=== PATIENT | male | born 1995 | race Two or more races ===

== ENCOUNTER 2018-11-07 17:20 | Emergency (ER) | payer OTHER ==
[~2018-11-07] VITALS: Ht 175.3 cm; Wt 56.2 kg
[2018-11-07 17:24] VITALS: BP 107/73
--- NOTE | 2018-11-07 17:58 | NUR ---
RASH ON ARMS, TORSO AND GENTALS
--- NOTE | 2018-11-07 18:10 | NUR ---
LAB AT BEDSIDE
== END 2018-11-07 18:29 | disposition home or self-care (01) ==
LOC: ED 18:00
DX: A51.0 Primary genital syphilis (principal); A60.01 Herpesviral infection of penis; B34.9 Viral infection, unspecified
CPT/HCPCS: 36415; 86592; 86780; 99283

== ENCOUNTER 2018-11-09 18:00 | Emergency (ER) | payer SELFPAY ==
[~2018-11-09] VITALS: Ht 180.3 cm; Wt 56.6 kg
[2018-11-09 18:09] VITALS: BP 107/63
[2018-11-09 18:42] LABS: BASOPHILS # (AUTO) 0.02 x10^3/uL (0-0.1); BASOPHILS % (AUTO) 0 % (0-1); EOSINOPHILS # (AUTO) 0.17 x10^3/uL (0-0.4); EOSINOPHILS % (AUTO) 3 % (1-7); LYMPHOCYTES # (AUTO) 1.66 x10^3/uL (1-3.4); LYMPHOCYTES % (AUTO) 29 % (22-44); MD NO; MEAN CORPUSCULAR HEMOGLOBIN 31.1 pg (27.5-34.5); MEAN CORPUSCULAR HGB CONC 33.5 g/dL (33.2-36.2); MEAN CORPUSCULAR VOLUME 92.7 fL (81-97); MEAN PLATELET VOLUME 8.2 fL (7.4-10.4); MONOCYTES # (AUTO) 0.59 x10^3/uL (0.2-0.8); MONOCYTES % (AUTO) 10 % (2-9); NEUTROPHILS # (AUTO) 3.31 x10^3/uL (1.8-6.8); NEUTROPHILS % (AUTO) 58 % (42-75); PLATELET COUNT 262 x10^3/uL (130-400); RED BLOOD COUNT 5.02 x10^6/uL (4.38-5.82)
[2018-11-09 18:52] LABS: ALANINE AMINOTRANSFERASE 19 U/L (12-78); ALBUMIN 3.9 g/dL (3.4-5.0); ANION GAP 5 mmol/L (5-15); CALCIUM 8.9 mg/dL (8.5-10.1); CHLORIDE 109 mmol/L (98-107); CREATININE 0.88 mg/dL (0.7-1.3)
--- NOTE | 2018-11-09 18:53 | NUR ---
DIETETIC TECHNICIAN REGISTERED: PT TO ROOM FROM DEV LOBO
[2018-11-09 18:55] LABS: ALKALINE PHOSPHATASE 98 U/L (45-117); BILIRUBIN,TOTAL 0.8 mg/dL (0.2-1.0); TOTAL PROTEIN 8.2 g/dL (6.4-8.2)
--- NOTE | 2018-11-09 19:19 | NUR ---
Dr. Chan at bedside with RN, Jennyfer, (translating) to evaluate pt.
--- NOTE | 2018-11-09 19:29 | NUR ---
Pt states that he had an allergic reaction to an unknown antibiotic in [place], he does not have any way of figuring out which medication it was.
[2018-11-09] MEDS ORDERED: BICILLIN-LA 2,400,000 UNITS/4 ML IM ONE ×2 (19:30→20:30)
--- NOTE | 2018-11-09 19:30 | NUR ---
No urine sample needed, per Dr. Chan.
--- NOTE | 2018-11-09 19:52 | NUR ---
RN in to assess pt regarding his decision for penicillin shot. Pt states that he spoke to a family member in [place] and confirmed that his allergic reaction was to metamizole, not an antibiotic. Dr. Chan to be notified.
--- NOTE | 2018-11-09 20:11 | NUR ---
Pt medicated per AUG, after MD made aware of pt's allergy.
== END 2018-11-09 20:54 | disposition home or self-care (01) ==
LOC: ED 20:42
DX: A51.0 Primary genital syphilis (principal)
CPT/HCPCS: 36415; 80053; 83690; 85025; 96372; 99283; J0561

== ENCOUNTER 2019-04-24 22:11 | Emergency (ER) | payer SELFPAY ==
[~2019-04-24] VITALS: Ht 172.7 cm; Wt 54.6 kg
[2019-04-24 23:40] LABS: BASOPHILS # (AUTO) 0.01 x10^3/uL (0-0.1); BASOPHILS % (AUTO) 0 % (0-1); EOSINOPHILS # (AUTO) 0.07 x10^3/uL (0-0.4); EOSINOPHILS % (AUTO) 1 % (1-7); LYMPHOCYTES # (AUTO) 2.03 x10^3/uL (1-3.4); LYMPHOCYTES % (AUTO) 26 % (22-44); MD NO; MEAN CORPUSCULAR HEMOGLOBIN 31.6 pg (27.5-34.5); MEAN CORPUSCULAR HGB CONC 33.3 g/dL (33.2-36.2); MEAN CORPUSCULAR VOLUME 94.7 fL (81-97); MEAN PLATELET VOLUME 7.9 fL (7.4-10.4); MONOCYTES # (AUTO) 0.69 x10^3/uL (0.2-0.8); MONOCYTES % (AUTO) 9 % (2-9); NEUTROPHILS # (AUTO) 5.17 x10^3/uL (1.8-6.8); NEUTROPHILS % (AUTO) 65 % (42-75); PLATELET COUNT 248 x10^3/uL (130-400); RED BLOOD COUNT 4.72 x10^6/uL (4.38-5.82); RED CELL DISTRIBUTION WIDTH 13.6 % (9.4-14.8)
[2019-04-24 23:46] LABS: ALANINE AMINOTRANSFERASE 20 U/L (12-78); ALBUMIN 4.5 g/dL (3.4-5.0); ANION GAP 7 mmol/L (5-15); CALCIUM 9.2 mg/dL (8.5-10.1); CHLORIDE 107 mmol/L (98-107); CREATININE 0.99 mg/dL (0.7-1.3)
[2019-04-24 23:48] LABS: ALKALINE PHOSPHATASE 96 U/L (45-117); BILIRUBIN,TOTAL 1.1 mg/dL (0.2-1.0); TOTAL PROTEIN 8.3 g/dL (6.4-8.2)
[2019-04-25 01:39] VITALS: BP 112/60
== END 2019-04-25 01:41 | disposition home or self-care (01) ==
LOC: ED 23:59
DX: K29.00 Acute gastritis without bleeding (principal); R10.11 Right upper quadrant pain
CPT/HCPCS: 36415; 76700; 80053; 83690; 85025; 99284

== ENCOUNTER 2019-05-01 22:05 | Emergency (ER) | payer SELFPAY ==
[~2019-05-01] VITALS: Ht 172.7 cm; Wt 58.2 kg
[2019-05-01] MEDS ORDERED: ONDANSETRON 2MG/ML, 2ML ONE (23:48)
[2019-05-01] MEDS ORDERED: MORPHINE SULFATE 4 MG/ML, 1ML ONE (23:48)
[2019-05-01 23:54] LABS: BASOPHILS # (AUTO) 0.04 x10^3/uL (0-0.1); BASOPHILS % (AUTO) 1 % (0-1); EOSINOPHILS # (AUTO) 0.23 x10^3/uL (0-0.4); EOSINOPHILS % (AUTO) 4 % (1-7); LYMPHOCYTES # (AUTO) 2.17 x10^3/uL (1-3.4); LYMPHOCYTES % (AUTO) 35 % (22-44); MD NO; MEAN CORPUSCULAR HEMOGLOBIN 31.5 pg (27.5-34.5); MEAN CORPUSCULAR HGB CONC 33.2 g/dL (33.2-36.2); MEAN CORPUSCULAR VOLUME 94.7 fL (81-97); MEAN PLATELET VOLUME 7.9 fL (7.4-10.4); MONOCYTES % (AUTO) 8 % (2-9); NEUTROPHILS # (AUTO) 3.24 x10^3/uL (1.8-6.8); NEUTROPHILS % (AUTO) 53 % (42-75); PLATELET COUNT 241 x10^3/uL (130-400); RED BLOOD COUNT 4.46 x10^6/uL (4.38-5.82); RED CELL DISTRIBUTION WIDTH 13.4 % (9.4-14.8)
--- NOTE | 2019-05-01 23:57 | NUR ---
LOG SORTING SUPERVISOR USED. PAIN FOR A COUPLE OF DAYS. BLOOD IN STOOL, MIKY BLOOD X3 DAYS. PAIN IN RLQ. 01/03.
[2019-05-02] MEDS ORDERED: SODIUM CHLORIDE FLUSH 10ML SYR IVF ONE
[2019-05-02] MEDS ORDERED: ONDANSETRON 2MG/ML, 2ML IVPush ONE
[2019-05-02] MEDS ORDERED: MORPHINE SULFATE 4 MG/ML, 1ML IVPush PRN
--- NOTE | 2019-05-02 00:01 | NUR ---
PT ALSO C/O PAIN STERNAL AREA THAT RADIATES TO SHOULDERS AND BACK. X4 DAYS. C/O NAUSEA BUT DENIES VOMITTING. PT HIV +
[2019-05-02 00:05] LABS: ALKALINE PHOSPHATASE 91 U/L (45-117); TOTAL PROTEIN 7.7 g/dL (6.4-8.2)
[2019-05-02 00:09] LABS: ALANINE AMINOTRANSFERASE 25 U/L (12-78); ALBUMIN 4.2 g/dL (3.4-5.0); ANION GAP 6 mmol/L (5-15); CALCIUM 8.6 mg/dL (8.5-10.1); CHLORIDE 111 mmol/L (98-107); CREATININE 0.92 mg/dL (0.7-1.3)
[2019-05-02 00:25] LABS: MICROSCOPIC AUTO
[2019-05-02 00:26] LABS: CULTURE INDICATED? NO
--- NOTE | 2019-05-02 00:30 | NUR ---
PT STATES HE IS SCARED OF MORPHINE AND DOES NOT WANT IT AT THIS TIME.
--- NOTE | 2019-05-02 01:20 | NUR ---
BREAK RN: PT RESTING ON GURNEY IN NAD. ALL VITALS STABLE. AWAITING US READ AT THIS TIME, WILL CONTINUE TO MONITOR.
[2019-05-02 01:33] VITALS: BP 127/78
== END 2019-05-02 02:31 | disposition home or self-care (01) ==
LOC: ED 05-02 01:55
DX: R07.89 Other chest pain (principal); R10.11 Right upper quadrant pain
CPT/HCPCS: 36415; 71045; 76700; 80053; 81001; 83690; 85025; 93005; 96374; 99284; J2405

== ENCOUNTER 2019-05-08 21:56 | Emergency (ER) | payer SELFPAY ==
[~2019-05-08] VITALS: Ht 167.6 cm; Wt 54.9 kg
--- NOTE | 2019-05-08 22:01 | NUR ---
FELIZX1
--- NOTE | 2019-05-08 22:13 | NUR ---
THE PT DOES NOT WANT TO BE CONNECTED TO THE MONITORING EQUIPMENT.
[2019-05-08] MEDS ORDERED: ONDANSETRON 2MG/ML, 2ML IVPush ONE (22:30)
[2019-05-08] MEDS ORDERED: SODIUM CHLORIDE FLUSH 10ML SYR IVF ONE (22:30)
[2019-05-08] MEDS ORDERED: HYDROmorphone 1 MG/ML, 1ML VIAL ONE (22:37)
[2019-05-08] MEDS ORDERED: ONDANSETRON 2MG/ML, 2ML ONE (22:37)
[2019-05-08 22:45] LABS: BASOPHILS # (AUTO) 0.06 x10^3/uL (0-0.1); BASOPHILS % (AUTO) 1 % (0-1); EOSINOPHILS # (AUTO) 0.14 x10^3/uL (0-0.4); EOSINOPHILS % (AUTO) 3 % (1-7); LYMPHOCYTES # (AUTO) 1.45 x10^3/uL (1-3.4); LYMPHOCYTES % (AUTO) 32 % (22-44); MD NO; MEAN CORPUSCULAR HEMOGLOBIN 31.4 pg (27.5-34.5); MEAN CORPUSCULAR HGB CONC 33.1 g/dL (33.2-36.2); MEAN CORPUSCULAR VOLUME 94.8 fL (81-97); MEAN PLATELET VOLUME 8.1 fL (7.4-10.4); MONOCYTES % (AUTO) 11 % (2-9); NEUTROPHILS % (AUTO) 53 % (42-75); PLATELET COUNT 226 x10^3/uL (130-400); RED BLOOD COUNT 4.68 x10^6/uL (4.38-5.82); RED CELL DISTRIBUTION WIDTH 13.4 % (9.4-14.8)
[2019-05-08] MEDS: HYDROmorphone 2 MG/ML, 1ML IVPush PRN (22:46)
--- NOTE | 2019-05-08 22:48 | NUR ---
ROUNDS COMPLETED. IV STARTED. MEDICATED FOR PAIN. READY FOR CT.
[2019-05-08 22:52] LABS: ALANINE AMINOTRANSFERASE 21 U/L (12-78); ALBUMIN 4.4 g/dL (3.4-5.0); ANION GAP 4 mmol/L (5-15); CALCIUM 8.8 mg/dL (8.5-10.1); CHLORIDE 108 mmol/L (98-107); CREATININE 0.95 mg/dL (0.7-1.3)
--- NOTE | 2019-05-08 22:53 | NUR ---
MEDICATED EFFECTIVELY. THE PT DENIES PAIN AT THIS TIME.
[2019-05-08 22:54] LABS: ALKALINE PHOSPHATASE 92 U/L (45-117); BILIRUBIN,TOTAL 1.6 mg/dL (0.2-1.0)
--- NOTE | 2019-05-08 23:31 | NUR ---
BACK FROM CT.
[2019-05-08] MEDS ORDERED: OMNIPAQUE 350 MG/ML, 100ML BOTTLE ONE (23:32)
--- NOTE | 2019-05-08 23:35 | NUR ---
WARM BLANKETS APPLIED.
[2019-05-09] MEDS ORDERED: HYDROmorphone 1 MG/ML, 1ML VIAL ONE (00:41)
[2019-05-09] MEDS: HYDROmorphone 2 MG/ML, 1ML IVPush PRN (00:42)
[2019-05-09 00:49] VITALS: BP 127/74
--- NOTE | 2019-05-09 00:50 | NUR ---
D/C INST REVIEWED W/ THE PT. THE PT VERB UNDERSTANDING. THE PT WAS MEDICATED W/ 2 OF 2 DILAUDID BEFORE D/C FOR C/O R ABD PAIN.
== END 2019-05-09 01:12 | disposition home or self-care (01) ==
LOC: ED 23:59
DX: A09 Infectious gastroenteritis and colitis, unspecified (principal); Z90.89 Acquired absence of other organs; Z21 Asymptomatic human immunodeficiency virus [HIV] infection status
CPT/HCPCS: 36415; 74177; 80053; 83690; 85025; 96374; 96375; 96376; 99284; J1170; J2405; Q9967

== ENCOUNTER 2019-05-10 21:38 | Emergency (ER) | payer SELFPAY ==
[~2019-05-10] VITALS: Ht 177.8 cm; Wt 53.7 kg
[2019-05-10] MEDS ORDERED: FAMOTIDINE 20 MG TABLET PO ONE (22:30)
[2019-05-10] MEDS ORDERED: DIPHENHYDRAMINE 25 MG CAPSULE PO ONE (22:30)
--- NOTE | 2019-05-10 23:18 | NUR ---
PT TO ROOM
[2019-05-10] MEDS ORDERED: FAMOTIDINE 20 MG TABLET ONE (23:20)
[2019-05-10] MEDS ORDERED: DIPHENHYDRAMINE 25 MG CAPSULE ONE (23:20)
[2019-05-11 01:32] LABS: BASOPHILS # (AUTO) 0.03 x10^3/uL (0-0.1); BASOPHILS % (AUTO) 0 % (0-1); EOSINOPHILS # (AUTO) 0.01 x10^3/uL (0-0.4); EOSINOPHILS % (AUTO) 0 % (1-7); LYMPHOCYTES # (AUTO) 1.69 x10^3/uL (1-3.4); LYMPHOCYTES % (AUTO) 20 % (22-44); MD NO; MEAN CORPUSCULAR HEMOGLOBIN 30.6 pg (27.5-34.5); MEAN CORPUSCULAR HGB CONC 32.8 g/dL (33.2-36.2); MEAN CORPUSCULAR VOLUME 93.4 fL (81-97); MONOCYTES # (AUTO) 0.63 x10^3/uL (0.2-0.8); MONOCYTES % (AUTO) 8 % (2-9); NEUTROPHILS # (AUTO) 6.01 x10^3/uL (1.8-6.8); NEUTROPHILS % (AUTO) 72 % (42-75); PLATELET COUNT 247 x10^3/uL (130-400); RED BLOOD COUNT 4.61 x10^6/uL (4.38-5.82); RED CELL DISTRIBUTION WIDTH 13.7 % (9.4-14.8)
[2019-05-11 01:42] LABS: ALANINE AMINOTRANSFERASE 24 U/L (12-78); ALBUMIN 4.4 g/dL (3.4-5.0); ANION GAP 5 mmol/L (5-15); CALCIUM 8.9 mg/dL (8.5-10.1); CHLORIDE 110 mmol/L (98-107); CREATININE 0.85 mg/dL (0.7-1.3)
[2019-05-11 01:44] LABS: ALKALINE PHOSPHATASE 74 U/L (45-117); BILIRUBIN,TOTAL 1.8 mg/dL (0.2-1.0); TOTAL PROTEIN 7.6 g/dL (6.4-8.2)
--- NOTE | 2019-05-11 02:00 | NUR ---
Break RN: ERP at bedside for re-evaluation.
[2019-05-11 02:18] VITALS: BP 112/76
== END 2019-05-11 02:20 | disposition home or self-care (01) ==
LOC: ED 05-11 00:17
DX: L50.9 Urticaria, unspecified (principal)
CPT/HCPCS: 36415; 80053; 85025; 99283; Q0163

== ENCOUNTER 2019-05-28 23:36 | Emergency (ER) | payer OTHER ==
[~2019-05-28] VITALS: Ht 175.3 cm; Wt 55.2 kg
[2019-05-28 23:40] VITALS: BP 129/72
--- NOTE | 2019-05-28 23:50 | NUR ---
PT C/O GROIN PAIN SINCE 4 PM. BURNING DURING URINATION
[2019-05-29] MEDS ORDERED: ACETAMINOPHEN 325 MG TABLET ONE (00:20)
[2019-05-29] MEDS ORDERED: ACETAMINOPHEN 325 MG TABLET PO ONE (00:30)
[2019-05-29 00:38] LABS: MICROSCOPIC NOT IND
[2019-05-29 00:45] LABS: CULTURE INDICATED? NO
--- NOTE | 2019-05-29 02:04 | NUR ---
Patient/Caregiver given discharge instructions and they have confirmed that they understand the instructions. Patient ambulatory with steady gait.
[2019-06-20] MEDS ORDERED: HIV MEDS (23:42)
== END 2019-05-29 02:10 | disposition home or self-care (01) ==
LOC: ED 05-29 01:20
DX: N50.812 Left testicular pain (principal)
CPT/HCPCS: 76870; 81003; 87491; 87591; 99284

== ENCOUNTER 2019-07-13 18:52 | Emergency (ER) | payer OTHER ==
[~2019-07-13] VITALS: Ht 177.8 cm; Wt 55.8 kg
[~2019-07-13 18:52] MED LIST: HIV MEDS
[2019-07-13 19:01] VITALS: BP 118/60
[2019-07-13] MEDS ORDERED: IBUPROFEN 200 MG TABLET PO ONE (19:30)
[2019-07-13] MEDS ORDERED: IBUPROFEN 200 MG TABLET ONE (19:42)
--- NOTE | 2019-07-13 20:25 | NUR ---
PT RETURNED FROM XRAY, AWAITING READ, NO NEEDS AT THIS TIME.
--- NOTE | 2019-07-13 21:15 | NUR ---
Patient/Caregiver given discharge instructions and they have confirmed that they understand the instructions. Patient ambulatory with steady gait.
== END 2019-07-13 21:26 | disposition home or self-care (01) ==
LOC: ED 21:15
DX: S16.1XXA Strain of muscle, fascia and tendon at neck level, initial encounter (principal); F17.200 Nicotine dependence, unspecified, uncomplicated; Z90.89 Acquired absence of other organs; X58.XXXA Exposure to other specified factors, initial encounter; Y93.89 Activity, other specified; Y92.89 Other specified places as the place of occurrence of the external cause; Y99.8 Other external cause status
CPT/HCPCS: 72050; 99283

== ENCOUNTER 2019-07-27 21:21 | Emergency (ER) | payer SELFPAY ==
[~2019-07-27] VITALS: Ht 177.8 cm; Wt 55.9 kg
--- NOTE | 2019-07-27 22:20 | NUR ---
Note rahul in ED - 07/27/19 at 2221 by PA [employer] ASSEMBLER DECK AND HULL USED [id number]: THIS IS A 24 YO MALE COMING IN FOR DIZZINESS AND "FEELING ILL" SINCE [id number]. PATIENT STATES "I TESTED POSITIVE FOR CHLAMYDIA TODAY AND THEY GAVE ME AZYTHROMYCIN. WHEN I GOT TO THE HOTEL THEY OF
--- NOTE | 2019-07-27 22:21 | NUR ---
[employer] SHELL ASSEMBLER USED [id number]: THIS IS A 24 YO MALE COMING IN FOR DIZZINESS AND "FEELING ILL" SINCE [phone]. PATIENT STATES "I TESTED POSITIVE FOR CHLAMYDIA TODAY AND THEY GAVE ME AZYTHROMYCIN. WHEN I GOT TO THE HOTEL THEY OFFERED ME [place], AND AFTER THAT I STARTED FEELING NOT WELL AND DIZZY LIKE I WAS GOING TO PASS OUT". PATIENT DENIES SOB, DENIES CP, DENIES LOC. MEDICAL HX CONSISTS OF HIV, AND CURRENTLY TAKES MEDICATIONS FOR IT. VSS, SPO2 AND BP MONITORING IN PLACE, NAD, CALL LIGHT IN REACH, DENIES NEEDS AT THIS TIME.
[2019-07-27 22:40] LABS: BASOPHILS # (AUTO) 0.04 x10^3/uL (0-0.1); BASOPHILS % (AUTO) 1 % (0-1); EOSINOPHILS # (AUTO) 0.09 x10^3/uL (0-0.4); EOSINOPHILS % (AUTO) 2 % (1-7); LYMPHOCYTES # (AUTO) 1.21 x10^3/uL (1-3.4); LYMPHOCYTES % (AUTO) 21 % (22-44); MD NO; MEAN CORPUSCULAR HEMOGLOBIN 30.8 pg (27.5-34.5); MEAN CORPUSCULAR HGB CONC 33.6 g/dL (33.2-36.2); MEAN CORPUSCULAR VOLUME 91.9 fL (81-97); MEAN PLATELET VOLUME 8.1 fL (7.4-10.4); MONOCYTES # (AUTO) 0.41 x10^3/uL (0.2-0.8); MONOCYTES % (AUTO) 7 % (2-9); NEUTROPHILS # (AUTO) 3.92 x10^3/uL (1.8-6.8); NEUTROPHILS % (AUTO) 69 % (42-75); PLATELET COUNT 206 x10^3/uL (130-400); RED BLOOD COUNT 4.66 x10^6/uL (4.38-5.82); RED CELL DISTRIBUTION WIDTH 13.3 % (9.4-14.8)
[2019-07-27 22:49] LABS: ALANINE AMINOTRANSFERASE 24 U/L (12-78); ALBUMIN 4.4 g/dL (3.4-5.0); ANION GAP 6 mmol/L (5-15); CALCIUM 9.1 mg/dL (8.5-10.1); CHLORIDE 109 mmol/L (98-107)
[2019-07-27 22:51] LABS: ALKALINE PHOSPHATASE 91 U/L (45-117); BILIRUBIN,TOTAL 1.8 mg/dL (0.2-1.0); TOTAL PROTEIN 7.8 g/dL (6.4-8.2)
[2019-07-27 22:57] VITALS: BP 109/63
--- NOTE | 2019-07-27 22:58 | NUR ---
PATIENT STATES HE IS FEELING A LITTLE BETTER AND LESS DIZZY. PATIENT UP FOR RECHECK. VSS, NAD, CALL LIGHT IN REACH
--- NOTE | 2019-07-27 23:34 | NUR ---
Patient/Caregiver given discharge instructions and they have confirmed that they understand the instructions. Patient ambulatory with steady gait.
--- NOTE | 2019-07-27 23:35 | NUR ---
PATIENT DID NOT WANT TAXI VOUCHER, PATIENT STATES "I'M STAYING AT [facility], I CAN WALK"
== END 2019-07-27 23:37 | disposition home or self-care (01) ==
LOC: ED 22:50
DX: R42 Dizziness and giddiness (principal); R53.1 Weakness; F17.200 Nicotine dependence, unspecified, uncomplicated; Z90.89 Acquired absence of other organs
CPT/HCPCS: 36415; 80053; 80307; 85025; 93005; 99284

== ENCOUNTER 2019-08-02 22:14 | Emergency (ER) | payer SELFPAY ==
[~2019-08-02] VITALS: Ht 177.8 cm; Wt 56.4 kg
--- NOTE | 2019-08-02 22:35 | NUR ---
PT C/O FEELING WEAK AND PERIUMBILICAL PAIN FOR TWO DAYS. DENIES N/V/D. PT CONNECTED TO MONITORING. CALL LIGHT IN REACH. AWAITING ORDERS AT THIS TIME.
[2019-08-02] MEDS ORDERED: LORazepam 0.5MG TABLET PO ONE (23:00)
[2019-08-02 23:03] LABS: BASOPHILS # (AUTO) 0.03 x10^3/uL (0-0.1); BASOPHILS % (AUTO) 1 % (0-1); EOSINOPHILS # (AUTO) 0.12 x10^3/uL (0-0.4); EOSINOPHILS % (AUTO) 2 % (1-7); LYMPHOCYTES # (AUTO) 1.82 x10^3/uL (1-3.4); LYMPHOCYTES % (AUTO) 35 % (22-44); MD NO; MEAN CORPUSCULAR HEMOGLOBIN 30.8 pg (27.5-34.5); MEAN CORPUSCULAR HGB CONC 33.7 g/dL (33.2-36.2); MEAN CORPUSCULAR VOLUME 91.3 fL (81-97); MONOCYTES # (AUTO) 0.69 x10^3/uL (0.2-0.8); MONOCYTES % (AUTO) 13 % (2-9); NEUTROPHILS # (AUTO) 2.57 x10^3/uL (1.8-6.8); NEUTROPHILS % (AUTO) 49 % (42-75); PLATELET COUNT 208 x10^3/uL (130-400); RED BLOOD COUNT 4.67 x10^6/uL (4.38-5.82); RED CELL DISTRIBUTION WIDTH 13.4 % (9.4-14.8)
[2019-08-02 23:12] LABS: ALANINE AMINOTRANSFERASE 24 U/L (12-78); ALBUMIN 4.3 g/dL (3.4-5.0); ANION GAP 6 mmol/L (5-15); CALCIUM 8.7 mg/dL (8.5-10.1); CHLORIDE 108 mmol/L (98-107); CREATININE 0.83 mg/dL (0.7-1.3)
[2019-08-02 23:15] LABS: SALICYLATE LEVEL < 1.7 mg/dL (2.8-20.0)
[2019-08-02 23:16] LABS: ALKALINE PHOSPHATASE 89 U/L (45-117); BILIRUBIN,TOTAL 1.4 mg/dL (0.2-1.0); TOTAL PROTEIN 7.7 g/dL (6.4-8.2)
--- NOTE | 2019-08-02 23:22 | NUR ---
PT PROVIDED URINE SAMPLE. UA COLLECTED AND TAKEN TO LAB.
[2019-08-02] MEDS ORDERED: LORazepam 0.5MG TABLET ONE (23:26)
--- NOTE | 2019-08-02 23:28 | NUR ---
MEDS ADMIN PER AUG. PT SITTING ON SIDE OF BED PLAYING ON PHONE.
--- NOTE | 2019-08-02 23:39 | NUR ---
CARLOS ALBERTO RN: TELEPSYCH PAGED
[2019-08-02 23:48] LABS: AMPHETAMINE SCREEN, URINE Negative (Negative); BARBITURATE SCREEN, URINE Negative (Negative); BENZODIAZEPINE SCREEN, URINE Negative (Negative); CANNABINOID SCREEN, URINE Negative (Negative); COCAINE SCREEN, URINE Negative (Negative); METHADONE SCREEN, URINE Negative (Negative); OPIATE SCREEN, URINE Negative (Negative)
--- NOTE | 2019-08-02 23:49 | NUR ---
PER MD ASSESSMENT. PT STATES HE IS HAVING SUICIDAL THOUGHT, BUT DOES NOT HAVE A PLAN. PT DENIES THESE THOUGHT DURING THIS NURSE ASSESSMENT.
--- NOTE | 2019-08-03 00:10 | NUR ---
REPORT GIVEN TO CRISTÓBAL ROMO
[2019-08-03] MEDS ORDERED: MIRT15TA94 PO (00:16)
--- NOTE | 2019-08-03 01:24 | NUR ---
TELEPSYCH CALLS BACK AND RECOMMENDS HOSPITALIZATION FOR SUICIDAL IDEATION AND BELIEVES THAT PT SHOULD BE PLACED ON A LEGAL HOLD AT THIS TIME, DR EDEN MADE AWARE OF THIS. PT STATED TO TELEPSYCH THAT HE DID NOT FEEL THAT HE WOULD BE SAFE LEAVING THEN CHANGED HIS STORY.
--- NOTE | 2019-08-03 02:21 | NUR ---
CARLOS ALBERTO RN: PACKET FAXED TO [facility]
[2019-08-03] MEDS ORDERED: QUETIAPINE 25MG TABLET PO PRN (02:30)
[2019-08-03] MEDS ORDERED: MIRTAZAPINE 15 MG TABLET ONE (02:33)
[2019-08-03] MEDS ORDERED: QUETIAPINE 25MG TABLET ONE (02:33)
--- NOTE | 2019-08-03 03:25 | NUR ---
PT PLACED IN HOSPITAL BED. PT RESTING COMFORTABLY. NO OTHER NEEDS AT THIS TIME.
--- NOTE | 2019-08-03 04:00 | NUR ---
REPORT FROM AYO BONILLA. ASSUMING CARE AT THIS TIME
--- NOTE | 2019-08-03 04:49 | NUR ---
PT RESTING ON HOSPITAL BED, EYES CLOSED, RESP EVEN. ANDRES. SITTER IN HALLWAY FOR SAFETY
--- NOTE | 2019-08-03 06:09 | NUR ---
1 BAG OF PT BELONGINGS LABELED AND PLACED IN LOCKER LEFT MIDDLE SHELF. PT GLASSES PHONE AND BUFFER NICKEL INCLUDED.
--- NOTE | 2019-08-03 06:53 | NUR ---
REPORT TO MASTER BONILLA
--- NOTE | 2019-08-03 06:58 | NUR ---
Note rahul in EDM - 08/03/19 at 0659 by MARCELLA Assumed c/o pt from IRENE Law. Pt is resting quietly w/ eyes closed at this time. Opens to V, reminded pt to provide urine sample when able.
--- NOTE | 2019-08-03 06:59 | NUR ---
Assumed c/o pt from IRENE Law. Sitter outside room, pt appears to be sleeping with visible chest rise. Meal tray ordered, will perform reassessment when he awakens.
[2019-08-03 07:48] VITALS: BP 104/49
--- NOTE | 2019-08-03 07:48 | NUR ---
Pt calm & cooperative at this time.
--- NOTE | 2019-08-03 08:11 | NUR ---
Breakfast tray delivered.
--- NOTE | 2019-08-03 08:46 | NUR ---
Pt requested phone to read books on b/c he feels a 'presence' in the room. Explained that he will not have access to his cellphone at this time. Offered books/magazines or to turn TV on in room-declines.
[2019-08-03] MEDS ORDERED: BICTEGRAV/EMTRICIT/TENOFOV ALA TAB PO SCH (09:00)
--- NOTE | 2019-08-03 09:13 | NUR ---
REPORT FROM MASTER
--- NOTE | 2019-08-03 10:49 | NUR ---
PT RESTING, SITTER PRESENT. NO NEEDS AT THIS TIME. GIVEN BEVERAGES
--- NOTE | 2019-08-03 11:50 | NUR ---
PT SLEEPING, GIVE WATER. SITTER PRESENT
--- NOTE | 2019-08-03 12:56 | NUR ---
MEAL TRAY IN PROCESS. NO NEEDS AT THIS TIME
--- NOTE | 2019-08-03 13:30 | NUR ---
DISCUSSED W CRISTAL PELAEZ HOME MEDICATIONS AND PT WILL BE LIKELY DC THIS AFTERNOON
--- NOTE | 2019-08-03 15:07 | NUR ---
SITTER AT BEDSIDE. PT FINISHED MEAL TRAY.
--- NOTE | 2019-08-03 16:24 | NUR ---
DISCUSSED W WELT INSOLE CHANNELER TO SEE PT TO DISCUSS POC TO DC W RX. PT IS CHATTING Bee JARQUIN
--- NOTE | 2019-08-03 17:13 | NUR ---
[employer] SALES REPRESENTATIVE AT BEDSIDE
--- NOTE | 2019-08-03 17:58 | NUR ---
Patient/Caregiver given discharge instructions and they have confirmed that they understand the instructions. Patient ambulatory with steady gait.
[2019-08-03] MEDS ORDERED: SERTRALINE 50MG TABLET PO ONE (18:00)
[2019-08-03] MEDS ORDERED: MIRTAZAPINE 15 MG TABLET PO SCH (21:00)
== END 2019-08-03 18:01 | disposition home or self-care (01) ==
LOC: ED 23:05
DX: R45.851 Suicidal ideations (principal); F41.1 Generalized anxiety disorder; F32.9 Major depressive disorder, single episode, unspecified; Z21 Asymptomatic human immunodeficiency virus [HIV] infection status; Z90.89 Acquired absence of other organs
CPT/HCPCS: 36415; 80053; 80307; 85025; 99284

== ENCOUNTER 2019-09-02 16:13 | Emergency (ER) | payer SELFPAY ==
[~2019-09-02] VITALS: Ht 180.3 cm; Wt 57.0 kg
[~2019-09-02 16:13] MED LIST changes: +MIRT15TA94 PO
[2019-09-02 16:22] VITALS: BP 131/74
== END 2019-09-02 18:15 | disposition home or self-care (01) ==
LOC: ED 17:13
DX: R21 Rash and other nonspecific skin eruption (principal); Z90.89 Acquired absence of other organs
CPT/HCPCS: 36415; 86592; 86780; 99283

== ENCOUNTER 2019-09-04 14:42 | Emergency (ER) | payer SELFPAY ==
[~2019-09-04] VITALS: Ht 177.8 cm; Wt 56.2 kg
[2019-09-04 15:09] LABS: BASOPHILS # (AUTO) 0.02 x10^3/uL (0-0.1); BASOPHILS % (AUTO) 1 % (0-1); EOSINOPHILS # (AUTO) 0.11 x10^3/uL (0-0.4); EOSINOPHILS % (AUTO) 3 % (1-7); LYMPHOCYTES # (AUTO) 1.48 x10^3/uL (1-3.4); LYMPHOCYTES % (AUTO) 36 % (22-44); MD NO; MEAN CORPUSCULAR HEMOGLOBIN 30.7 pg (27.5-34.5); MEAN CORPUSCULAR HGB CONC 33.2 g/dL (33.2-36.2); MEAN CORPUSCULAR VOLUME 92.4 fL (81-97); MEAN PLATELET VOLUME 8.3 fL (7.4-10.4); MONOCYTES # (AUTO) 0.31 x10^3/uL (0.2-0.8); MONOCYTES % (AUTO) 8 % (2-9); NEUTROPHILS # (AUTO) 2.16 x10^3/uL (1.8-6.8); NEUTROPHILS % (AUTO) 53 % (42-75); PLATELET COUNT 237 x10^3/uL (130-400); RED BLOOD COUNT 5.07 x10^6/uL (4.38-5.82); RED CELL DISTRIBUTION WIDTH 13.8 % (9.4-14.8)
[2019-09-04 15:21] LABS: ANION GAP 6 mmol/L (5-15); CALCIUM 9.3 mg/dL (8.5-10.1); CHLORIDE 111 mmol/L (98-107)
--- NOTE | 2019-09-04 18:02 | NUR ---
NO ANSWER IN LOBBY
--- NOTE | 2019-09-04 18:24 | NUR ---
TO ROOM AT THIS TIME.
--- NOTE | 2019-09-04 18:35 | NUR ---
THIS IS A 24 YO M W/ C/O NAUSEA AND LT FLANK PAIN SINCE TUESDAY. PT DENIES VOMITING, ABD PAIN, PAIN W/ URINATION. VS STABLE. NADN. PT IS RESTING ON [place] W/ CALL LIGHT IN REACH, AWAITING ED EVAL.
[2019-09-04 18:36] VITALS: BP 117/66
--- NOTE | 2019-09-04 18:40 | NUR ---
PT AMBULATED TO THE BR W/ A STEADY GAIT.
--- NOTE | 2019-09-04 18:50 | NUR ---
MED DES FROM PHARMACY.
[2019-09-04] MEDS ORDERED: BICILLIN-LA 2,400,000 UNITS/4 ML IM ONE (19:00)
--- NOTE | 2019-09-04 19:26 | NUR ---
Patient given discharge instructions and they have confirmed that they understand the instructions. Patient ambulatory with steady gait.
== END 2019-09-04 19:26 | disposition home or self-care (01) ==
LOC: ED 15:42
DX: A51.0 Primary genital syphilis (principal); R53.1 Weakness
CPT/HCPCS: 36415; 80048; 85025; 96372; 99283; J0561

== ENCOUNTER 2019-09-17 22:32 | Emergency (ER) | payer SELFPAY ==
[~2019-09-17] VITALS: Ht 177.8 cm; Wt 58.7 kg
[2019-09-17 23:16] VITALS: BP 117/67
--- NOTE | 2019-09-17 23:18 | NUR ---
PT TO ED WITH C/O OF FLANK AND RIGHT SIDED ABDOMINAL PAIN. PT ALSO REPORTS DIFFICULTY URINATING TODAY. PT DENIES PAIN OR BURNING WITH URINATION. PT CONNECTED TO MONITORING, CALL LIGHT WITHIN REACH, ALL SAFETY MEASURES IN PLACE.
--- NOTE | 2019-09-17 23:19 | NUR ---
PT REFUSING TO PROVIDE UA AT THIS TIME.
[2019-09-17] MEDS ORDERED: ONDANSETRON ODT 4 MG ONE (23:20)
[2019-09-17] MEDS ORDERED: HYDROcodone/APAP 5/325 TABLET ONE (23:21)
[2019-09-17] MEDS ORDERED: ONDANSETRON ODT 4 MG PO ONE (23:30)
[2019-09-17] MEDS ORDERED: HYDROcodone/APAP 5/325 TABLET PO ONE (23:30)
[2019-09-17 23:50] LABS: BASOPHILS # (AUTO) 0.04 x10^3/uL (0-0.1); BASOPHILS % (AUTO) 1 % (0-1); EOSINOPHILS # (AUTO) 0.18 x10^3/uL (0-0.4); EOSINOPHILS % (AUTO) 3 % (1-7); LYMPHOCYTES # (AUTO) 2.76 x10^3/uL (1-3.4); LYMPHOCYTES % (AUTO) 41 % (22-44); MD NO; MEAN CORPUSCULAR HEMOGLOBIN 30.3 pg (27.5-34.5); MEAN CORPUSCULAR HGB CONC 32.8 g/dL (33.2-36.2); MEAN CORPUSCULAR VOLUME 92.4 fL (81-97); MEAN PLATELET VOLUME 7.9 fL (7.4-10.4); MONOCYTES # (AUTO) 0.58 x10^3/uL (0.2-0.8); MONOCYTES % (AUTO) 9 % (2-9); NEUTROPHILS # (AUTO) 3.16 x10^3/uL (1.8-6.8); NEUTROPHILS % (AUTO) 47 % (42-75); PLATELET COUNT 269 x10^3/uL (130-400); RED BLOOD COUNT 4.92 x10^6/uL (4.38-5.82); RED CELL DISTRIBUTION WIDTH 13.3 % (9.4-14.8)
[2019-09-17 23:57] LABS: MICROSCOPIC NOT IND
[2019-09-17 23:58] LABS: ALANINE AMINOTRANSFERASE 37 U/L (12-78); ALBUMIN 4.4 g/dL (3.4-5.0); ANION GAP 3 mmol/L (5-15); CALCIUM 9.3 mg/dL (8.5-10.1); CHLORIDE 106 mmol/L (98-107); CREATININE 0.74 mg/dL (0.7-1.3)
[2019-09-17 23:59] LABS: CULTURE INDICATED? NO
[2019-09-18] LABS: ALKALINE PHOSPHATASE 104 U/L (45-117); BILIRUBIN,TOTAL 0.7 mg/dL (0.2-1.0); TOTAL PROTEIN 7.8 g/dL (6.4-8.2)
== END 2019-09-18 01:04 | disposition home or self-care (01) ==
LOC: ED 23:32
DX: R10.11 Right upper quadrant pain (principal); F17.200 Nicotine dependence, unspecified, uncomplicated
CPT/HCPCS: 36415; 76700; 80053; 81003; 83690; 85025; 99284; Q0162

== ENCOUNTER 2019-09-24 21:26 | Emergency (ER) | payer OTHER ==
[~2019-09-24] VITALS: Ht 25.4 cm; Wt 57.3 kg
[2019-09-24 21:32] VITALS: BP 128/88
== END 2019-09-24 22:32 ==
LOC: ED 21:56
DX: F41.1 Generalized anxiety disorder (principal); F17.200 Nicotine dependence, unspecified, uncomplicated; Z90.89 Acquired absence of other organs; Z76.0 Encounter for issue of repeat prescription
CPT/HCPCS: 99283

== ENCOUNTER 2019-10-13 04:21 | Emergency (ER) | payer SELFPAY ==
[~2019-10-13] VITALS: Ht 177.8 cm; Wt 57.8 kg
--- NOTE | 2019-10-13 04:40 | NUR ---
Patient presents to ER c/o abd pain greater than 5 days. He was seen at [facility] last week for the same and dx with gallstones. Pain is worse x2 days; gets worse after eating. Denies vomiting or nausea. +diarrhea. States he's had a cough x2 weeks.
[2019-10-13] MEDS ORDERED: MORPHINE SULFATE 4 MG/ML, 1ML ONE ×2 (04:44→05:59)
[2019-10-13] MEDS ORDERED: ONDANSETRON 2MG/ML, 2ML ONE ×2 (04:44→05:12)
[2019-10-13] MEDS ORDERED: SODIUM CHLORIDE FLUSH 10ML SYR IVF ONE (05:00)
[2019-10-13] MEDS ORDERED: ONDANSETRON 2MG/ML, 2ML IVPush ONE (05:00)
[2019-10-13] MEDS: MORPHINE SULFATE 4 MG/ML, 1ML IVPush PRN ×3 (05:07→06:08)
--- NOTE | 2019-10-13 05:30 | NUR ---
THIS TECH TRIAGED/ROOMED PT
[2019-10-13 05:32] LABS: BASOPHILS # (AUTO) 0.03 x10^3/uL (0-0.1); BASOPHILS % (AUTO) 0 % (0-1); EOSINOPHILS # (AUTO) 0.18 x10^3/uL (0-0.4); EOSINOPHILS % (AUTO) 3 % (1-7); LYMPHOCYTES # (AUTO) 2.28 x10^3/uL (1-3.4); LYMPHOCYTES % (AUTO) 40 % (22-44); MD NO; MEAN CORPUSCULAR HEMOGLOBIN 30.4 pg (27.5-34.5); MEAN CORPUSCULAR HGB CONC 33.2 g/dL (33.2-36.2); MEAN CORPUSCULAR VOLUME 91.6 fL (81-97); MEAN PLATELET VOLUME 8.5 fL (7.4-10.4); MONOCYTES # (AUTO) 0.54 x10^3/uL (0.2-0.8); MONOCYTES % (AUTO) 9 % (2-9); NEUTROPHILS # (AUTO) 2.73 x10^3/uL (1.8-6.8); NEUTROPHILS % (AUTO) 47 % (42-75); PLATELET COUNT 230 x10^3/uL (130-400); RED BLOOD COUNT 5.02 x10^6/uL (4.38-5.82); RED CELL DISTRIBUTION WIDTH 13.3 % (9.4-14.8)
[2019-10-13 05:37] LABS: ALANINE AMINOTRANSFERASE 32 U/L (12-78); ALBUMIN 4.3 g/dL (3.4-5.0); ANION GAP 4 mmol/L (5-15); CALCIUM 9.4 mg/dL (8.5-10.1); CHLORIDE 107 mmol/L (98-107)
[2019-10-13 05:39] LABS: ALKALINE PHOSPHATASE 95 U/L (45-117); BILIRUBIN,TOTAL 1.1 mg/dL (0.2-1.0); TOTAL PROTEIN 8.4 g/dL (6.4-8.2)
[2019-10-13] MEDS ORDERED: KETOROLAC 30 MG/1 ML IVPush ONE ×2 (06:00→08:30)
--- NOTE | 2019-10-13 06:59 | NUR ---
Report to IRENE Nguyen.
--- NOTE | 2019-10-13 07:07 | NUR ---
Bedside report received from Page RN, pt care transferred at this time. Pt resting in [facility], denies additional needs at this time, skin WNL for ethnicity, warm and dry. MATY, KONRAD. CT at BS
[2019-10-13 07:51] LABS: MICROSCOPIC INDICATED
--- NOTE | 2019-10-13 08:10 | NUR ---
Note rahul in ED - 10/13/19 at 0811 by ONEYDA hourly rounding on pt, resting in tg, NAD, RESP intact, MAEx4, skin warn color WNL, ERP at bs
--- NOTE | 2019-10-13 08:11 | NUR ---
hourly rounding on pt, resting in gurney, NAD, RESP intact, MAEx4, skin warm and dry, color WNL, ERP at bs for eval and updating on POC. WCTM.
[2019-10-13] MEDS ORDERED: KETOROLAC 30 MG/1 ML ONE (08:14)
[2019-10-13 08:50] VITALS: BP 118/84
--- NOTE | 2019-10-13 08:51 | NUR ---
Patient/Caregiver given discharge instructions and they have confirmed that they understand the instructions. Patient ambulatory with steady gait. Questions answered appropriately, pt denies additional questions or needs at this time.
== END 2019-10-13 08:52 | disposition home or self-care (01) ==
LOC: ED 04:44
DX: R10.13 Epigastric pain (principal); F17.290 Nicotine dependence, other tobacco product, uncomplicated; Z90.49 Acquired absence of other specified parts of digestive tract
CPT/HCPCS: 36415; 71045; 74176; 76700; 80053; 81001; 83690; 85025; 96374; 96375; 99285; J1885; J2270; J2405

== ENCOUNTER 2019-11-11 17:26 | Emergency (ER) | payer SELFPAY ==
[~2019-11-11] VITALS: Ht 177.8 cm; Wt 56.5 kg
--- NOTE | 2019-11-11 17:48 | NUR ---
FIRST CONTACT WITH PT. PT C/O DIZZY WITH FATIGUE X 3 DAYS. PT'S AOX4. RESPS EVEN AND UNLABORED. PT REFUSED TO CHANGE AT THIS TIME. PT SITTING ON CHAIR. PT'S AOX4. RESPS EVEN AND UNLABORED.
[2019-11-11] MEDS ORDERED: MECLIZINE CHEWABLE 25 MG TAB ONE (17:58)
[2019-11-11] MEDS ORDERED: MECLIZINE CHEWABLE 25 MG TAB PO ONE (18:00)
--- NOTE | 2019-11-11 18:05 | NUR ---
PT MEDICATED PER EMAR. PT TOLERATED WELL.
[2019-11-11] MEDS ORDERED: CARBAMIDE PEROXIDE EAR DROPS 6.5%, 15ML ONE (18:13)
--- NOTE | 2019-11-11 18:24 | NUR ---
EMT DOING IRRIGATION IN R EAR AT THIS TIME. PT TOLERATED WELL.
[2019-11-11] MEDS ORDERED: CARBAMIDE PEROXIDE EAR DROPS 6.5%, 15ML RIGHT EAR ONE (18:30)
--- NOTE | 2019-11-11 18:54 | NUR ---
REPORT GIVEN TO TAI BONILLA.
--- NOTE | 2019-11-11 18:56 | NUR ---
REPORT GIVEN TO TAI BONILLA.
[2019-11-11 19:19] VITALS: BP 121/60
== END 2019-11-11 19:22 | disposition home or self-care (01) ==
LOC: ED 17:44
DX: H81.11 Benign paroxysmal vertigo, right ear (principal); H61.21 Impacted cerumen, right ear; Z90.49 Acquired absence of other specified parts of digestive tract
CPT/HCPCS: 99283

== ENCOUNTER 2019-12-05 00:51 | Emergency (ER) | payer SELFPAY ==
[~2019-12-05] VITALS: Ht 177.8 cm; Wt 55.7 kg
[2019-12-05 01:00] VITALS: BP 106/72
[2019-12-05] MEDS ORDERED: ONDANSETRON ODT 4 MG PO ONE (01:30)
[2019-12-05] MEDS ORDERED: ONDANSETRON ODT 4 MG ONE (01:40)
[2019-12-05 01:49] LABS: BASOPHILS # (AUTO) 0.02 x10^3/uL (0-0.1); BASOPHILS % (AUTO) 1 % (0-1); EOSINOPHILS # (AUTO) 0.19 x10^3/uL (0-0.4); EOSINOPHILS % (AUTO) 4 % (1-7); LYMPHOCYTES # (AUTO) 1.76 x10^3/uL (1-3.4); LYMPHOCYTES % (AUTO) 35 % (22-44); MD NO; MEAN CORPUSCULAR HEMOGLOBIN 30.4 pg (27.5-34.5); MEAN CORPUSCULAR HGB CONC 33.7 g/dL (33.2-36.2); MEAN PLATELET VOLUME 8.1 fL (7.4-10.4); MONOCYTES # (AUTO) 0.57 x10^3/uL (0.2-0.8); MONOCYTES % (AUTO) 11 % (2-9); NEUTROPHILS # (AUTO) 2.49 x10^3/uL (1.8-6.8); NEUTROPHILS % (AUTO) 50 % (42-75); PLATELET COUNT 214 x10^3/uL (130-400); RED BLOOD COUNT 4.61 x10^6/uL (4.38-5.82); RED CELL DISTRIBUTION WIDTH 14.2 % (9.4-14.8)
[2019-12-05 02:01] LABS: ALANINE AMINOTRANSFERASE 34 U/L (12-78); ALBUMIN 4.3 g/dL (3.4-5.0); ANION GAP 5 mmol/L (5-15); CALCIUM 8.9 mg/dL (8.5-10.1); CHLORIDE 107 mmol/L (98-107); CREATININE 0.88 mg/dL (0.7-1.3)
[2019-12-05 02:04] LABS: ALKALINE PHOSPHATASE 92 U/L (45-117); BILIRUBIN,TOTAL 1.6 mg/dL (0.2-1.0); TOTAL PROTEIN 7.7 g/dL (6.4-8.2)
== END 2019-12-05 02:35 | disposition home or self-care (01) ==
LOC: ED 02:31
DX: K52.9 Noninfective gastroenteritis and colitis, unspecified (principal); R10.13 Epigastric pain; R11.2 Nausea with vomiting, unspecified; Z90.89 Acquired absence of other organs
CPT/HCPCS: 36415; 80053; 83690; 85025; 99283; Q0162

== ENCOUNTER 2019-12-15 13:30 | Emergency (ER) | payer SELFPAY ==
[~2019-12-15] VITALS: Ht 177.8 cm; Wt 55.7 kg
--- NOTE | 2019-12-15 13:36 | NUR ---
PT AMBULATES FROM TRIAGE TO ROOM.
--- NOTE | 2019-12-15 14:19 | NUR ---
C/O LOWER ABD PAIN STARTED YESTERDAY; RT FLANK PAIN STARTED AT 1100 TODAY. + NAUSEA, PAINFUL URINATION. DENIES VOMITING, DIARRHEA, CONSTIPATION. TYLENOL YESTERDAY. LAST ORAL INTAKE: 299. LAST BM: TODAY.
[2019-12-15] MEDS ORDERED: ELVI1TAB3 PO (14:24)
[2019-12-15 14:26] LABS: BASOPHILS # (AUTO) 0.03 x10^3/uL (0-0.1); BASOPHILS % (AUTO) 1 % (0-1); EOSINOPHILS # (AUTO) 0.11 x10^3/uL (0-0.4); EOSINOPHILS % (AUTO) 2 % (1-7); LYMPHOCYTES # (AUTO) 1.81 x10^3/uL (1-3.4); LYMPHOCYTES % (AUTO) 34 % (22-44); MD NO; MEAN CORPUSCULAR HEMOGLOBIN 30.2 pg (27.5-34.5); MEAN CORPUSCULAR HGB CONC 33.1 g/dL (33.2-36.2); MEAN CORPUSCULAR VOLUME 91.2 fL (81-97); MEAN PLATELET VOLUME 8.1 fL (7.4-10.4); MONOCYTES # (AUTO) 0.35 x10^3/uL (0.2-0.8); MONOCYTES % (AUTO) 7 % (2-9); NEUTROPHILS # (AUTO) 3.06 x10^3/uL (1.8-6.8); NEUTROPHILS % (AUTO) 57 % (42-75); PLATELET COUNT 189 x10^3/uL (130-400); RED BLOOD COUNT 4.59 x10^6/uL (4.38-5.82); RED CELL DISTRIBUTION WIDTH 13.9 % (9.4-14.8)
--- NOTE | 2019-12-15 14:29 | NUR ---
PT REFUSED OFFER OF PAIN MEDICINE AT THIS TIME
[2019-12-15 14:38] LABS: MICROSCOPIC INDICATED
[2019-12-15 14:39] LABS: ALANINE AMINOTRANSFERASE 29 U/L (12-78); ALBUMIN 4.2 g/dL (3.4-5.0); ANION GAP 5 mmol/L (5-15); CALCIUM 8.7 mg/dL (8.5-10.1); CHLORIDE 111 mmol/L (98-107); CREATININE 0.87 mg/dL (0.7-1.3)
[2019-12-15 14:41] LABS: ALKALINE PHOSPHATASE 76 U/L (45-117); BILIRUBIN,TOTAL 1.2 mg/dL (0.2-1.0); TOTAL PROTEIN 7.3 g/dL (6.4-8.2)
--- NOTE | 2019-12-15 15:00 | NUR ---
AMBULATORY TO & FROM [facility] BR W/OUT INCIDENT; GAIT STEADY.
--- NOTE | 2019-12-15 15:35 | NUR ---
RESTING QUIETLY ON BED; AWAITING CT
--- NOTE | 2019-12-15 15:50 | NUR ---
CALLED CT FOR STATUS. PER TECH, THEY WILL COME FOR PT SOON.
[2019-12-15 16:07] VITALS: BP 110/71
--- NOTE | 2019-12-15 16:08 | NUR ---
CT DONE. PT RESTING QUIETLY ON GURNEY, SIDE RAIL UP X1, CALL LIGHT W/IN REACH.
[2019-12-15] MEDS ORDERED: KETOROLAC 30 MG/1 ML IM ONE (16:30)
[2019-12-15] MEDS ORDERED: ONDANSETRON ODT 4 MG PO ONE (16:30)
[2019-12-15] MEDS ORDERED: ONDANSETRON ODT 4 MG ONE (16:35)
[2019-12-15] MEDS ORDERED: KETOROLAC 30 MG/1 ML ONE (16:35)
--- NOTE | 2019-12-15 16:42 | NUR ---
PT MEDICATED PER EMAR
== END 2019-12-15 16:50 | disposition home or self-care (01) ==
LOC: ED 14:52
DX: N20.1 Calculus of ureter (principal); N23 Unspecified renal colic; Z90.49 Acquired absence of other specified parts of digestive tract
CPT/HCPCS: 36415; 74176; 80053; 81001; 85025; 96372; 99284; J1885; Q0162

== ENCOUNTER 2019-12-17 00:26 | Emergency (ER) | payer SELFPAY ==
[~2019-12-17] VITALS: Ht 180.3 cm; Wt 56.2 kg
[~2019-12-17 00:26] MED LIST changes: +ELVI1TAB3 PO
[2019-12-17 00:27] VITALS: BP 126/76
[2019-12-17 01:05] LABS: MICROSCOPIC INDICATED
[2019-12-17] MEDS ORDERED: MAGNESIUM CITRATE 300ML ORAL SOL ONE (01:52)
[2019-12-17] MEDS ORDERED: MAGNESIUM CITRATE 300ML ORAL SOL PO ONE (02:00)
--- NOTE | 2019-12-17 02:00 | NUR ---
PT TO ED WITH C/O ABDOMINAL PAIN. REPORTS RECENTLY HERE AND HAD A KIDNEY STONES. DENIES FEVER OR VOMITING.
== END 2019-12-17 02:31 | disposition home or self-care (01) ==
LOC: ED 00:45
DX: K59.00 Constipation, unspecified (principal); R31.9 Hematuria, unspecified
CPT/HCPCS: 74018; 81001; 99284

== ENCOUNTER 2020-02-24 01:09 | Emergency (ER) | payer SELFPAY ==
[~2020-02-24] VITALS: Ht 180.3 cm; Wt 55.0 kg
[2020-02-24 01:51] LABS: BASOPHILS # (AUTO) 0.03 x10^3/uL (0-0.1); BASOPHILS % (AUTO) 1 % (0-1); EOSINOPHILS # (AUTO) 0.07 x10^3/uL (0-0.4); EOSINOPHILS % (AUTO) 1 % (1-7); LYMPHOCYTES # (AUTO) 2.47 x10^3/uL (1-3.4); LYMPHOCYTES % (AUTO) 47 % (22-44); MD NO; MEAN CORPUSCULAR HEMOGLOBIN 30.3 pg (27.5-34.5); MEAN CORPUSCULAR HGB CONC 33.4 g/dL (33.2-36.2); MEAN CORPUSCULAR VOLUME 90.7 fL (81-97); MEAN PLATELET VOLUME 8.1 fL (7.4-10.4); MONOCYTES # (AUTO) 0.53 x10^3/uL (0.2-0.8); MONOCYTES % (AUTO) 10 % (2-9); NEUTROPHILS # (AUTO) 2.11 x10^3/uL (1.8-6.8); NEUTROPHILS % (AUTO) 40 % (42-75); PLATELET COUNT 233 x10^3/uL (130-400); RED CELL DISTRIBUTION WIDTH 13.9 % (9.4-14.8)
[2020-02-24 01:52] LABS: ALANINE AMINOTRANSFERASE 28 U/L (12-78); ALBUMIN 4.6 g/dL (3.4-5.0); ANION GAP 8 mmol/L (5-15); CALCIUM 9.1 mg/dL (8.5-10.1); CHLORIDE 106 mmol/L (98-107); CREATININE 0.96 mg/dL (0.7-1.3)
[2020-02-24 01:54] LABS: ALKALINE PHOSPHATASE 95 U/L (45-117); BILIRUBIN,TOTAL 1.4 mg/dL (0.2-1.0); TOTAL PROTEIN 8.3 g/dL (6.4-8.2)
--- NOTE | 2020-02-24 02:00 | NUR ---
THIS IS A 25 YO MALE COMING IN FOR ULQ ABD PAIN, TENDER TO PALPATION. PATIENT SEEN HERE FREQUENTLY FOR ABD PAIN, STATES "I HAVE AN APPOINTMENT THIS COMING WEEK WITH A GI SURGEON". C/O NAUSEA. MONITORING IN PLACE, ANDRES HERNANDEZ. INSTRUCTED ON NEED FOR URINE, PATIENT UNABLE TO GO AT THIS TIME
[2020-02-24] MEDS ORDERED: ONDANSETRON ODT 4 MG ONE (02:12)
[2020-02-24] MEDS ORDERED: ONDANSETRON ODT 4 MG PO ONE (02:30)
--- NOTE | 2020-02-24 02:48 | NUR ---
REPORT GIVEN TO IRENE CAR
[2020-02-24 03:53] LABS: MICROSCOPIC NOT IND
[2020-02-24 04:40] VITALS: BP 118/64
== END 2020-02-24 04:42 | disposition home or self-care (01) ==
LOC: ED 02:06
DX: R10.12 Left upper quadrant pain (principal); R11.0 Nausea
CPT/HCPCS: 36415; 80053; 81003; 83690; 85025; 99283; Q0162

== ENCOUNTER 2020-02-26 19:57 | Emergency (ER) | payer SELFPAY ==
[~2020-02-26] VITALS: Ht 180.3 cm; Wt 54.3 kg
--- NOTE | 2020-02-26 20:23 | NUR ---
PT STATES HAVING N/V, ABDOMINAL/LFT LOWER QUADRANT PAIN SINCE "TUESDAY". PT STATES PAIN HAS BEEN CONSISTANT AND HAS NOT GOTTEN BETTER OR WORSE. PT IS SEXUALLY ACTIVE AND DOES NOT USE PROTECTION. PATIENT HAS FLANK PAIN THAT IS TENDER TO THE TOUCH WELL. PATIENT DENIES DIZZINESS AND STATES ONLY HAVING NAUSEA AT THE MOMENT. PATIENT RESTING IN BED, ALL MONITORS IN PLACE, AND SAFETY MEASURES IN PLACE.
[2020-02-26] MEDS ORDERED: ONDANSETRON ODT 4 MG PO ONE (20:30)
[2020-02-26] MEDS ORDERED: MAALOX/HYOSCYAMINE/LIDOCAINE 45 ML BTL PO ONE (20:30)
[2020-02-26] MEDS ORDERED: ONDANSETRON ODT 4 MG ONE (20:40)
[2020-02-26] MEDS ORDERED: MAALOX/HYOSCYAMINE/LIDOCAINE 45 ML BTL ONE (20:41)
--- NOTE | 2020-02-26 20:43 | NUR ---
MEDICATED PER MAR, LABS DRAWN, URINE SENT, AWAITING RESULTS. PATIENT STATES NO NEEDS.
[2020-02-26 20:51] LABS: BASOPHILS # (AUTO) 0.04 x10^3/uL (0-0.1); BASOPHILS % (AUTO) 1 % (0-1); EOSINOPHILS # (AUTO) 0.04 x10^3/uL (0-0.4); EOSINOPHILS % (AUTO) 1 % (1-7); LYMPHOCYTES % (AUTO) 37 % (22-44); MD NO; MEAN CORPUSCULAR HGB CONC 32.8 g/dL (33.2-36.2); MEAN CORPUSCULAR VOLUME 91.5 fL (81-97); MEAN PLATELET VOLUME 8.1 fL (7.4-10.4); MONOCYTES # (AUTO) 0.26 x10^3/uL (0.2-0.8); MONOCYTES % (AUTO) 6 % (2-9); NEUTROPHILS # (AUTO) 2.45 x10^3/uL (1.8-6.8); NEUTROPHILS % (AUTO) 56 % (42-75); PLATELET COUNT 210 x10^3/uL (130-400); RED BLOOD COUNT 4.87 x10^6/uL (4.38-5.82); RED CELL DISTRIBUTION WIDTH 13.7 % (9.4-14.8)
[2020-02-26 20:56] LABS: MICROSCOPIC AUTO
[2020-02-26 21:02] LABS: ALANINE AMINOTRANSFERASE 28 U/L (12-78); ALBUMIN 4.4 g/dL (3.4-5.0); ANION GAP 4 mmol/L (5-15); CALCIUM 9.3 mg/dL (8.5-10.1); CHLORIDE 106 mmol/L (98-107)
[2020-02-26 21:04] LABS: ALKALINE PHOSPHATASE 85 U/L (45-117); BILIRUBIN,TOTAL 1.7 mg/dL (0.2-1.0); TOTAL PROTEIN 8.3 g/dL (6.4-8.2)
[2020-02-26 21:33] VITALS: BP 113/69
== END 2020-02-26 21:39 | disposition home or self-care (01) ==
LOC: ED 21:26
DX: R10.13 Epigastric pain (principal); R11.0 Nausea; Z21 Asymptomatic human immunodeficiency virus [HIV] infection status; Z90.89 Acquired absence of other organs
CPT/HCPCS: 36415; 80053; 81001; 83690; 85025; 99283; Q0162

== ENCOUNTER 2020-03-24 00:32 | Emergency (ER) | payer OTHER ==
[~2020-03-24] VITALS: Ht 180.3 cm; Wt 57.7 kg
[2020-03-24 00:35] VITALS: BP 124/78
--- NOTE | 2020-03-24 00:42 | NUR ---
PT AMBULATORY TO BATHROOM, STEADY GAIT.
[2020-03-24] MEDS ORDERED: KETOROLAC 30 MG/1 ML IM ONE (01:00)
[2020-03-24] MEDS ORDERED: KETOROLAC 30 MG/1 ML ONE (01:02)
--- NOTE | 2020-03-24 01:21 | NUR ---
PT RESTING WITH EYES CLOSED AND RESPIRATIONS EVEN AND UNLABORED. INTERMITTENTLY ON PHONE. ANDRES.
--- NOTE | 2020-03-24 02:06 | NUR ---
PT REMAINS SITTING IN BED, NADN, ON PHONE, RESPIRATIONS EVEN AND UNLABORED.
--- NOTE | 2020-03-24 02:48 | NUR ---
TASK RN: PT D/C WITH D/C SUMMARY. ALL QUESTIONS ANSWERED. PT AMBULATES TO REGISTRATION DESK WITH STEADY GAIT FOR D/C HOME AND DENIES ANY OTHER NEEDS PERTAINING TO THIS VISIT.
== END 2020-03-24 02:50 | disposition home or self-care (01) ==
LOC: ED 02:07
DX: G62.9 Polyneuropathy, unspecified (principal); M79.661 Pain in right lower leg; G89.29 Other chronic pain; Z21 Asymptomatic human immunodeficiency virus [HIV] infection status; Z90.89 Acquired absence of other organs
CPT/HCPCS: 96372; 99283; J1885

== ENCOUNTER 2020-03-30 01:11 | Emergency (ER) | payer OTHER ==
[~2020-03-30] VITALS: Ht 180.3 cm; Wt 55.7 kg
[2020-03-30 01:13] VITALS: BP 130/80
== END 2020-03-30 02:29 | disposition home or self-care (01) ==
LOC: ED 01:50
DX: R42 Dizziness and giddiness (principal); I51.7 Cardiomegaly; R19.7 Diarrhea, unspecified; Z90.49 Acquired absence of other specified parts of digestive tract
CPT/HCPCS: 93005; 99283

== ENCOUNTER 2020-05-29 02:07 | Emergency (ER) | payer OTHER ==
[~2020-05-29] VITALS: Ht 180.3 cm; Wt 57.8 kg
--- NOTE | 2020-05-29 02:20 | NUR ---
pt ambulated to restroom for urine sample
[2020-05-29] MEDS ORDERED: MAALOX/HYOSCYAMINE/LIDOCAINE 45 ML BTL ONE (02:21)
[2020-05-29] MEDS ORDERED: MAALOX/HYOSCYAMINE/LIDOCAINE 45 ML BTL PO ONE (02:30)
[2020-05-29 02:32] VITALS: BP 122/75
--- NOTE | 2020-05-29 02:33 | NUR ---
PT IN FOR ABDOMINAL PAIN X 6 HOURS. PT SEES GI CONSULTANTS BUT ASTATES NEVER BEING DIAGNOSED WITH ANY ISSUES. PT MEDICATED PER EMAR, LABS DRAWN, PT ON CONTINUOUS PULSE OX.
[2020-05-29 02:39] LABS: BASOPHILS % (AUTO) 1 % (0-1); EOSINOPHILS % (AUTO) 2 % (1-7); LYMPHOCYTES % (AUTO) 40 % (22-44); MEAN CORPUSCULAR HEMOGLOBIN 30.2 pg (27.5-34.5); MEAN CORPUSCULAR HGB CONC 33.5 g/dL (33.2-36.2); MEAN PLATELET VOLUME 7.5 fL (7.4-10.4); MONOCYTES % (AUTO) 12 % (2-9); NEUTROPHILS % (AUTO) 46 % (42-75); PLATELET COUNT 242 x10^3/uL (130-400); RED BLOOD COUNT 4.69 x10^6/uL (4.38-5.82); RED CELL DISTRIBUTION WIDTH 13.4 % (9.4-14.8)
[2020-05-29 02:49] LABS: ALANINE AMINOTRANSFERASE 32 U/L (12-78); ALBUMIN 4.3 g/dL (3.4-5.0); ANION GAP 4 mmol/L (5-15); CHLORIDE 107 mmol/L (98-107); CREATININE 0.82 mg/dL (0.7-1.3); MD NO
[2020-05-29 02:51] LABS: ALKALINE PHOSPHATASE 83 U/L (45-117); BILIRUBIN,TOTAL 1.3 mg/dL (0.2-1.0); TOTAL PROTEIN 7.9 g/dL (6.4-8.2)
== END 2020-05-29 03:22 | disposition home or self-care (01) ==
LOC: ED 02:30
DX: K21.9 Gastro-esophageal reflux disease without esophagitis (principal); G89.29 Other chronic pain; R10.84 Generalized abdominal pain; R11.0 Nausea; Z90.49 Acquired absence of other specified parts of digestive tract; Z87.891 Personal history of nicotine dependence
CPT/HCPCS: 36415; 80053; 83690; 85025; 99283